=== PATIENT | female | born 1940 | race Caucasian/White ===

== ENCOUNTER 2019-06-14 12:52 | Observation (INO) ==
--- NOTE | 2019-06-14 13:10 | ERNOTE ---
Dizziness ER Record Date of Service: 06/14/19 Presenting Symptoms: dizziness Time Seen by Provider: 06/14/19 12:54 Source: patient Exam Limitations: dementia Immunizations: IMMUNIZATION HX Immunizations Up to Date Yes History of Influenza Vaccine Yes Allergies/Adverse Reactions: Allergies Allergy/AdvReac Type Severity Reaction Status Date / Time chlorpheniramine Allergy Unverified 05/23/12 11:24 Home Medications: HOME MEDICATIONS B complex-vitamin C-folic acid 1 mg tablet 1 tab PO DAILY #90 tab 02/21/18 [Last Taken Unknown] carboxymethylcellulose sodium 0.5 % eye drops 1 drp OP BID PRN #15 ml 02/21/18 [Last Taken Unknown] cetirizine 10 mg tablet 5 mg PO DAILY PRN #90 tab 02/21/18 [Last Taken Unknown] cholecalciferol (vitamin D3) 50 mcg (2,000 unit) capsule 2,000 unit PO DAILY #90 cap 02/21/18 [Last Taken Unknown] ferrous sulfate 325 mg (65 mg iron) tablet 325 mg PO BID #180 tab 02/21/18 [Last Taken Unknown] fluticasone propionate 50 mcg/actuation nasal spray,suspension 1 spray EVIE BID PRN #15.8 g 02/21/18 [Last Taken Unknown] krill 300 mg-omega 3 90 mg-dha 24 mg-epa 50 [id number] capsule 2 cap PO BID #360 cap 02/21/18 [Last Taken Unknown] - History of Present Illness Narrative: 78 yr old female with history of vertigo, bifasicular block and Alzheimer's dementia presents with intermittent episodes of dizziness and a sharp, shooting, squeezing sensation in her left druze. This began last night. The episodes occur randomly and lasts seconds. Occurs and resolves suddenly. Has had in the past, but not for awhile. Denies any nausea/vomiting. No tingling, numbness or weakness. Denies any SOB or chest pain. States she had some mild SOB last night when walking up the stairs, but none since. She has been self isolating in her home with her the past 4 weeks. Denies travel. Denies any fever or cough. Denies any difficulty in balance. Walks with a cane. states in January of 2018 patient had an episode of dizziness that caused her to fall striking her head and breaking her ankle. He states the patient has been having increasing episodes of dizziness the past 4 - 5 weeks. This morning she was in the sitting position and he witnessed her eyes roll back. She was unresponsive for approximately 10 secs. He states the episodic stabbing pain in the left druze has been more frequent. This was very bad while she was eating soup at lunch today. He is not aware if she has had trigeminal neuralgia in the past. She did take Neurontin 300 mg tid at one time, but he does not know why. He states she is not taking it anymore because the medication ran out. is not aware of any slow heart rate in the past. Date (Duration): 06/14/19 Time (Timing): 13:10 Timing and Duration: intermittent Associated Symptoms: Present: headache, light headedness Usually:: Present: uses a cane/walker, walks only w/ assistance Modifying Factors - (Improves): Reports: nothing Modifying Factors - (Worsens): Reports: nothing Prior Treament: Reports: similar symptoms before Review of Systems - Review of Systems Constitutional: Absent: recent illness, fever, weakness EYE: Absent: vision changes ENT: Absent: nasal drainage Respiratory: Absent: shortness of breath, cough Cardiology: Present: syncope - this morning. Absent: chest pain, palpitations, edema Gastrointestinal/Abdominal: Absent: nausea, vomiting, eating less, drinking less Genitourinary: Present: frequency Musculoskeletal: Absent: back pain, muscle pain Skin: Present: no symptoms reported Neurological: Present: headache - stabbing left druze, dizziness/light- headedness, other - History of dementia Endocrine: Present: no symptoms reported Hematologic/Lymphatic: Present: no symptoms reported Psych: Present: no symptoms reported All Other Systems: All systems neg except as marked Medical History (Last Reviewed 06/14/19 @ 13:31 by THOMAS Weldon) Alzheimer disease Dilatation of esophagus precancerous breast changes Surgical History: Surgical History (Last Reviewed 06/14/19 @ 13:31 by THOMAS Weldon) H/O dilation and curettage H/O exploratory laparotomy History of carpal tunnel release History of total bilateral knee replacement (TKR) Hx of cataract surgery Hx of tonsillectomy S/P lumpectomy, left breast Family History: Family History (Last Reviewed 06/14/19 @ 13:31 by THOMAS Weldon) Other Unknown family medical history Physical Exam - Physical Exam General Appearance: Present: wd/wn, alert, no apparent distress Head Exam: Present: normal inspection, no evidence of injury, no tenderness w palpation - No tenderness to palpation over the left druze Eye Exam: Normal inspection: bilateral, PERRL: bilateral, EOMI: bilateral Ears, Nose, Throat: Present: normal ENT inspection, normal pharynx Neck: Present: normal inspection, nontender Respiratory: Present: no respiratory distress, normal breath sounds, no accessory muscle use, chest nontender, lungs clear Cardiovascular/Chest: Present: no murmur, normal peripheral pulses, bradycardia Peripheral Pulses: N=norm/S=strong/W=weak/B=bound/A=absent: Radial (R): Normal Gastrointestinal/Abdominal: Present: normal bowel sounds, nontender, nondistended, soft Extremity Exam: Present: normal inspection, non-tender, normal range of motion, no edema Neurological Exam: Present: alert, oriented, normal mood/affect, no motor/sensory deficits, 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 Absent: facial droop, motor weakness Skin Exam: Present: normal color, warm/dry Progress - Results and Orders Patient's Lab Results:: I have reviewed the patient's lab results. Results and Orders: Laboratory Tests 06/14/19 13:29 WBC 8.8 RBC 4.69 Hgb 14.1 Hct 43.0 Plt Count 249 Laboratory Tests 06/14/19 13:29 Sodium 140 Potassium 4.5 Carbon Dioxide 24.3 BUN 20 Creatinine 1.36 Random Glucose 127 H Calcium 9.0 AST 20 ALT 24 Alkaline Phosphatase 80 C-Reactive Prot, Quant Less than 0.2 Total Protein 7.3 Albumin 3.4 Laboratory Tests 06/14/19 13:29 ESR 23 H - Vital Signs Patient's Vital Signs:: I have reviewed the patient's vital signs. Vital Signs: Vital Signs 06/14/19 12:58 Temperature 36.5 C Pulse Rate 53 L Respiratory Rate 18 Blood Pressure 150/50 H O2 Sat by Pulse Oximetry 96 - EKG EKG #1 EKG: other - Bradycardia with arrythmia rate 43 - CT/Ultrasound CT/Ultrasound Narrative: CT head - no acute pathology - Progress/Reassessment Chief Complaint: Dizziness Progress Note-Subjective: 06/14/19 14:48 Test results reviewed with the patient and with her by phone. Etiology and treatment plan discussed. Discussed observation for telemetry monitoring in regards to her bradycardia especially because of the syncopal episode this morning. They are in agreement. Case staffed with Dr. Higuera who graciously accepted her care. Plan - Plan Plan: Place in Observation Departure Clinical Impression: Sick sinus syndrome, Trigeminal neuralgia of left side of face Syncopal episodes Qualifiers: Syncope type: unspecified Qualified Code(s): R55 - Syncope and collapse - Departure Disposition: Still a patient Condition: Good Referrals: Francisca Inman ARNP [Primary Care Provider] -
[2019-06-14] MEDS ORDERED: MECLIZINE HCL 25 MG TABLET PO ONE (13:24)
[2019-06-14 13:36] LABS: Hemoglobin 14.1 gm/dL (12.5-16.0); Mean Cell Volume 91.7 fl (78-100); Mean Corpuscular Hemoglobin 30.1 pg (27-31); Mean Corpuscular Hgb Conc 32.8 g/dl (32-36); Mean Platelet Volume 10.2 fl (8-12.5); Neutrophil # 5.8 K/mm3 (1.3-6.0); Neutrophil % 66.1 % (42-75.0); Platelet Count 249 K/mm3 (150-450); Red Blood Count 4.69 M/mm3 (4.2-5.4); Red Cell Distribution Width 13.1 % (11.5-14.0); White Blood Count 8.8 K/mm3 (4.0-10.5)
[2019-06-14 13:50] LABS: ALT 24 U/L (19-67); AST 20 U/L (0-48); Albumin * 3.4 gm/dl (3.4-5.0); Alkaline Phosphatase * 80 U/L (50-170); Anion Gap 16.2 mmol/L (6.8-13.8); BUN/Creatinine Ratio 14.7 (9.0-21.6); Bilirubin, Total 0.4 mg/dL (0.0-1.1); Blood Urea Nitrogen 20 mg/dL (3-23); Ca. Corrected For Albumin 9.2 mg/dL (8.4-10.2); Carbon Dioxide 24.3 mmol/L (24-32.6); Chloride 104 mmol/L (97-106); Glucose * 127 mg/dL (70-110); Potassium 4.5 mmol/L (3.4-4.6); Sodium 140 mmol/L (132-142); Total Protein 7.3 gm/dL (6.2-8.2)
[2019-06-14] MEDS ORDERED: GABAPENTIN 100 MG CAPSULE PO ONE (13:57)
[2019-06-14] MEDS ORDERED: traMADol HCL 50 MG TABLET PO ONE (13:58)
[2019-06-14] MEDS ORDERED: GABAPENTIN 300 MG CAPSULE PO SCH (15:00)
--- NOTE | 2019-06-14 17:04 | HP ---
Chief Complaint - Chief Complaint Date of Service: 06/14/19 Time of Service: 16:30 Chief Complaint: Left christian pain, increasing dizziness, bradycardia History of Present Illness: Savanna Berkowitz is a's 78-year-old female who presented to the ER with intermittent left temporal pain and a complaint of increasing dizziness. Please see the paragraph below: 78 yr old female with history of vertigo, bifasicular block and Alzheimer's dementia presents with intermittent episodes of dizziness and a sharp, shooting, squeezing sensation in her left christian. This began last night. The episodes occur randomly and lasts seconds. Occurs and resolves suddenly. Has had in the past, but not for awhile. Denies any nausea/vomiting. No tingling, numbness or weakness. Denies any SOB or chest pain. States she had some mild SOB last night when walking up the stairs, but none since. She has been self isolating in her home with her the past 4 weeks. Denies travel. Denies any fever or cough. Denies any difficulty in balance. Walks with a cane. states in January of 2018 patient had an episode of dizziness that caused her to fall striking her head and breaking her ankle. He states the patient has been having increasing episodes of dizziness the past 4 - 5 weeks. This morning she was in the sitting position and he witnessed her eyes roll back. She was unresponsive for approximately 10 secs. He states the episodic stabbing pain in the left christian has been more frequent. This was very bad while she was eating soup at lunch today. He is not aware if she has had trigeminal neuralgia in the past. She did take Neurontin 300 mg tid at one time, but he does not know why. He states she is not taking it anymore because the medication ran out. Upon hooking her up to the monitor was transferred to inpatient she is having episodes of marked bradycardia in which she is lightheaded and symptomatic. I spoke with Dr. Dempsey and he has agreed to accept her in transfer. Medical History (Last Reviewed 06/14/19 @ 15:39 by Jazlyn Coley RN) Dilatation of esophagus Alzheimer disease precancerous breast changes Surgical History: Surgical History (Last Reviewed 06/14/19 @ 15:39 by Jazlyn Coley RN) H/O dilation and curettage H/O exploratory laparotomy History of carpal tunnel release Hx of cataract surgery Hx of tonsillectomy S/P lumpectomy, left breast History of total bilateral knee replacement (TKR) Family History: Family History (Last Reviewed 06/14/19 @ 15:39 by Jazlyn Coley RN) Other Unknown family medical history Social History: (Last Updated 06/14/19 @ 15:42 by Jazlyn Coley RN) Social History: adopted: No long term: No Marital status: household members: spouse number of children: 3 parent marital status: current occupational status: retired Previous occupational history: Net Web Developer Highest education level completed: some college, no degree Review Of Systems (GEN) - Review of Systems Generalized/Overall Review: Present: Weakness, Malaise EENTM: Present: No Symptoms Reported Respiratory: Present: No Symptoms Reported Cardiac: Present: Palpitations, Other - Lightheadedness Abdominal: Present: No Symptoms Reported Genitourinary: Present: No Symptoms Reported Musculoskeletal: Present: No Symptoms Reported Neurological: Present: No Symptoms Reported, Other - Memory difficulties Skin: Present: No Symptoms Reported Endocrine: Present: No Symptoms Reported Misc: All systems neg except as marked Immunizations: IMMUNIZATION HX Immunizations Up to Date Yes History of Influenza Vaccine Yes Allergies/Adverse Reactions: Allergies Allergy/AdvReac Type Severity Reaction Status Date / Time chlorpheniramine Allergy Unknown Verified 06/14/19 15:42 Home Medications: HOME MEDICATIONS B complex-vitamin C-folic acid 1 mg tablet 1 tab PO DAILY #90 tab 02/21/18 [Last Taken Unknown] carboxymethylcellulose sodium 0.5 % eye drops 1 drp OP BID PRN #15 ml 02/21/18 [Last Taken Unknown] cetirizine 10 mg tablet 5 mg PO DAILY PRN #90 tab 02/21/18 [Last Taken Unknown] cholecalciferol (vitamin D3) 50 mcg (2,000 unit) capsule 2,000 unit PO DAILY #90 cap 02/21/18 [Last Taken 06/14/19] ferrous sulfate 325 mg (65 mg iron) tablet 325 mg PO BID #180 tab 02/21/18 [Last Taken 06/14/19] fluticasone propionate 50 mcg/actuation nasal spray,suspension 1 spray EVIE BID PRN #15.8 g 02/21/18 [Last Taken Unknown] krill 300 mg-omega 3 90 mg-dha 24 mg-epa 50 [id number] capsule 2 cap PO BID #360 cap 02/21/18 [Last Taken 06/14/19] Ascorbic Acid [Vitamin C] 1,000 mg PO PRN PRN 06/14/19 [Last Taken Unknown] Aspirin [Aspirin EC] 325 mg PO DAILY 06/14/19 [Last Taken 06/14/19] Calcium Carb, Citrate/Vit D3 [Calcium + D3 ER Tablet] 1 ea PO DAILY 06/14/19 [Last Taken 06/14/19] Hemp Extract 1 dis.syr PO DAILY 06/14/19 [Last Taken 06/13/19] Memantine HCl 5 mg PO DAILY 06/14/19 [Last Taken 06/14/19] Recept 500 mg PO DAILY 06/14/19 [Last Taken 06/13/19] Exam - Exam Vital Signs: Vital Signs - Last Taken Temp 36.6 C 06/14/19 15:44 Pulse 52 L 06/14/19 15:44 Resp 22 H 06/14/19 15:44 BP 174/51 H 06/14/19 15:44 Pulse Ox 98 06/14/19 15:44 Constitutional: Present: Alert, Oriented x3, Cooperative, Well developed, Well nourished, Mild distress ENT Exam: Present: normal ENT inspection, hearing grossly normal, pharynx normal Eye Exam: bilateral eye: normal inspection, PERRL, EOMI Neck: Present: non-tender, full range of motion Back Exam: Present: normal inspection, no CVA tenderness, no vertebral tenderness Breasts: Present: Exam deferred Respiratory: Present: chest non-tender, lungs clear, normal breath sounds, no respiratory distress, no accessory muscle use Cardiovascular/Chest: Present: normal peripheral pulses, regular rate, rhythm, no chest tenderness, no edema, no gallop, no JVD, no murmur, no rub Peripheral Pulses: carotid (R): 2+, carotid (L): 2+, radial (R): 2+, radial (L): 2+ Abdomen: Present: Normal bowel sounds, soft, nontender, nondistended, no rebound tenderness, no hepatospenomegaly, no masses, obese /Rectal: Present: Exam deferred Extremity: Present: normal range of motion, non-tender, normal inspection, no pedal edema, no calf tenderness, normal capillary refill Skin Exam: Present: normal color, warm/dry, no cyanosis Lymphatic: Present: no adenopathy 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 Appearance: Present: appropriate appearance, appropriate insight, neat, impaired recent memory Eye contact: Present: good eye contact, normal speech Thoughts: Present: normal thought pattern, no apparent hallucination Diagnostic Studies: Abnormal Lab Results 06/14/19 06/14/19 Range/Units 13:29 13:29 ESR 23 H (0-15) mm/hr Anion Gap 16.2 H (6.8-13.8) mmol/L Est GFR (Non-Af Amer) 40 L (60-130) mL/min Random Glucose 127 H (70-110) mg/dL Laboratory Results WBC 8.8 K/mm3 (4.0-10.5) 06/14/19 13:29 RBC 4.69 M/mm3 (4.2-5.4) 06/14/19 13:29 Hgb 14.1 gm/dL (12.5-16.0) 06/14/19 13:29 Hct 43.0 % (37.0-47.0) 06/14/19 13:29 MCV 91.7 fl (78-100) 06/14/19 13:29 MCH 30.1 pg (27-31) 06/14/19 13:29 MCHC 32.8 g/dl (32-36) 06/14/19 13:29 RDW 13.1 % (11.5-14.0) 06/14/19 13:29 Plt Count 249 K/mm3 (150-450) 06/14/19 13:29 MPV 10.2 fl (8-12.5) 06/14/19 13:29 Immature Gran % (Auto) 0.20 % (0.001-0.429) 06/14/19 13:29 Immature Gran # (Auto) 0.02 K/mm3 (0.000-0.0310) 06/14/19 13:29 Neutrophils % 66.1 % (42-75.0) 06/14/19 13:29 Lymphocytes % 27.5 % (20-51) 06/14/19 13:29 Monocytes % 4.9 % (0.0-9) 06/14/19 13:29 Eosinophils % 0.8 % (0.0-3.0) 06/14/19 13:29 Basophils % 0.5 % (0.0-1.0) 06/14/19 13:29 Nucleated RBC % 0.0 k/mm3 (0-1) 06/14/19 13:29 Neutrophils # 5.8 K/mm3 (1.3-6.0) 06/14/19 13:29 Lymphocytes # 2.42 k/mm3 (1.5-3.5) 06/14/19 13:29 Monocytes # 0.4 k/mm3 (0.0-1.0) 06/14/19 13:29 Eosinophils # 0.1 k/mm3 (0.0-0.7) 06/14/19 13:29 Absolute Basophils 0.0 k/mm3 (0.0-0.1) 06/14/19 13:29 ESR 23 mm/hr (0-15) H 06/14/19 13:29 Sodium 140 mmol/L (132-142) 06/14/19 13:29 Plasma Sodium 140 mmol/L (130-142) 06/14/19 13:29 Potassium 4.5 mmol/L (3.4-4.6) 06/14/19 13:29 Chloride 104 mmol/L (97-106) 06/14/19 13:29 Carbon Dioxide 24.3 mmol/L (24-32.6) 06/14/19 13:29 Anion Gap 16.2 mmol/L (6.8-13.8) H 06/14/19 13:29 BUN 20 mg/dL (3-23) 06/14/19 13:29 Creatinine 1.36 mg/dL (0.4-1.4) 06/14/19 13:29 Est GFR (Non-Af Amer) 40 mL/min (60-130) L 06/14/19 13:29 BUN/Creatinine Ratio 14.7 (9.0-21.6) 06/14/19 13:29 Random Glucose 127 mg/dL (70-110) H 06/14/19 13:29 Calcium 9.0 mg/dL (7.9-10.9) 06/14/19 13:29 Calcium Adj for Albumin 9.2 mg/dL (8.4-10.2) 06/14/19 13:29 Total Bilirubin 0.4 mg/dL (0.0-1.1) 06/14/19 13:29 AST 20 U/L (0-48) 06/14/19 13:29 ALT 24 U/L (19-67) 06/14/19 13:29 Alkaline Phosphatase 80 U/L (50-170) 06/14/19 13:29 C-Reactive Prot, Quant Less than 0.2 mg/dL (0.0-0.9) 06/14/19 13:29 Total Protein 7.3 gm/dL (6.2-8.2) 06/14/19 13:29 Albumin 3.4 gm/dl (3.4-5.0) 06/14/19 13:29 Assessment/Plan - Narrative Narrative: 1. Apply pacemaker pads in case needed 2. Establish a second IV site and consider dopamine infusion if needed 3. Transfer to [facility] to the care of Dr. Dempsey - Assessment/Plan (1) Intermittent complete heart block Problem: Acute (2) Symptomatic bradycardia Problem: Acute (3) Bifascicular block Problem: Chronic (4) Sick sinus syndrome Problem: Acute (5) Trigeminal neuralgia of left side of face Problem: Acute
--- NOTE | 2019-06-14 17:07 | DS ---
Transfer Discharge Summary - Diagnosis(s)/Problems (1) Intermittent complete heart block Problem: Acute (2) Symptomatic bradycardia Problem: Acute (3) Bifascicular block Problem: Chronic (4) Sick sinus syndrome Problem: Acute (5) Trigeminal neuralgia of left side of face Problem: Acute - Course Description of Stay: Savanna Berkowitz is a 78-year-old female who was just admitted from ER to manage left temporal pain. She was placed on the monitor because of bradycardia she had demonstrated an ER and she is blocking out into the 20s and becoming lightheaded and nearly syncopal with that. Her only medication is memantine that she takes for memory. I spoke with Dr. Dempsey and he agrees that she should be at [facility] where they can do interventional work if necessary. She will be transferred per EMS. Procedures Performed: none - Results and Findings Results and Findings: Laboratory Results - last 24 hr 06/14/19 06/14/19 06/14/19 13:29 13:29 13:29 WBC 8.8 RBC 4.69 Hgb 14.1 Hct 43.0 MCV 91.7 MCH 30.1 MCHC 32.8 RDW 13.1 Plt Count 249 MPV 10.2 Immature Gran % (Auto) 0.20 Immature Gran # (Auto) 0.02 Neutrophils % 66.1 Lymphocytes % 27.5 Monocytes % 4.9 Eosinophils % 0.8 Basophils % 0.5 Nucleated RBC % 0.0 Neutrophils # 5.8 Lymphocytes # 2.42 Monocytes # 0.4 Eosinophils # 0.1 Absolute Basophils 0.0 ESR 23 H Sodium 140 Plasma Sodium 140 Potassium 4.5 Chloride 104 Carbon Dioxide 24.3 Anion Gap 16.2 H BUN 20 Creatinine 1.36 Est GFR (Non-Af Amer) 40 L BUN/Creatinine Ratio 14.7 Random Glucose 127 H Calcium 9.0 Calcium Adj for Albumin 9.2 Total Bilirubin 0.4 AST 20 ALT 24 Alkaline Phosphatase 80 C-Reactive Prot, Quant Less than 0.2 Total Protein 7.3 Albumin 3.4 - Medications Medications: Active Medications Gabapentin (Neurontin) 300 mg PO Q8H EMELIA Stop: 07/14/19 15:01 Last Admin: 06/14/19 16:54 Dose: Not Given Documented by: Discontinued Medications Gabapentin (Neurontin) 300 mg PO ONCE ONE Stop: 06/14/19 13:58 Last Admin: 06/14/19 14:04 Dose: 300 mg Documented by: Meclizine HCl (Antivert) 25 mg PO ONCE ONE Stop: 06/14/19 13:25 Last Admin: 06/14/19 13:30 Dose: 25 mg Documented by: Tramadol HCl (Ultram) 50 mg PO ONCE ONE Stop: 06/14/19 13:59 Last Admin: 06/14/19 14:04 Dose: 50 mg Documented by: - Disposition Disposition: Short Term Hospital Inpatient Condition: Fair Discharge Date: 06/14/19 Discharge Time: 17:06
[2019-06-14 17:45] VITALS: BP 146/44
== END 2019-06-14 19:01 | disposition short-term general hospital (02) ==
LOC: ER 12:52 → MS 12:52
PROVIDERS: ADMIT Family Medicine; ATTEND Family Medicine
DX: R55 Syncope and collapse; F02.80 Dementia in other diseases classified elsewhere, unspecified severity, without behavioral disturbance, psychotic disturbance, mood disturbance, and anxiety; G30.9 Alzheimer's disease, unspecified; G50.0 Trigeminal neuralgia; I44.2 Atrioventricular block, complete; I49.5 Sick sinus syndrome
CPT/HCPCS: 36415; 70450; 80053; 85025; 85652; 86140; 93005; 99285; G0378